=== PATIENT | male | born 1970 | race Caucasian/White ===

== ENCOUNTER 2018-07-30 09:20 | Emergency (ER) | payer BC ==
[2018-07-30 21:22] VITALS: BP 146/91; PULSE 68; RESP 18; O2SAT 98
[2018-07-30 21:34] VITALS: TEMP 97.8
== END 2018-07-30 12:09 | disposition home or self-care (01) ==
LOC: ED 09:20
DX: L97.329 Non-pressure chronic ulcer of left ankle with unspecified severity (principal); I87.2 Venous insufficiency (chronic) (peripheral)
CPT/HCPCS: 99282; A4450